=== PATIENT | male | born 1950 | race Caucasian/White ===

== ENCOUNTER 2019-12-10 17:17 | Inpatient (IN) | payer MEDICARE, OTHER ==
[~2019-12-10] VITALS: Ht 180.3 cm; Wt 90.7 kg
[2019-12-10 17:26] VITALS: BP 135/75
[2019-12-10 17:55] LABS: HEMATOCRIT 30.6 % (42.0-52.0); HEMOGLOBIN 10.1 gm/dL (14.0-18.0); MCH 28.1 pg (26.0-34.0); MCV 85.3 fL (80.0-100.0); MPV 7.6 fl. (7.2-11.1); NUCLEATED RBCS 0 /100WBC; PLATELET COUNT* 253 thou/uL (150-400); RBC 3.59 mil/uL (4.50-6.00); RDW-CV 17.9 % (10.5-14.5); WBC 19.2 thou/uL (4.0-11.0)
[2019-12-10 18:04] LABS: CALCIUM 7.8 mg/dL (8.5-10.1); CREATININE 1.2 mg/dL (0.6-1.3); POTASSIUM 3.7 mmol/L (3.5-5.1)
[2019-12-10 18:09] LABS: ALBUMIN 2.8 g/dL (3.4-5.0); TOTAL BILIRUBIN 0.4 mg/dL (<0.1-1.0); TOTAL PROTEIN 7.1 g/dL (6.4-8.2)
[2019-12-10 18:20] LABS: ABSOLUTE LYMPHOCYTES 0.4 thou/uL (0.8-5.3); ABSOLUTE MONOCYTES 1.9 thou/uL (0.0-1.2); ABSOLUTE NEUTROPHILS 16.9 thou/uL (1.6-8.1); PLATELET ESTIMATE ADEQUATE
[2019-12-10 18:25] VITALS: BP 145/75
[2019-12-10 18:27] LABS: ANISOCYTOSIS 1+
[2019-12-10 18:32] LABS: TEARDROPS Occasional
[2019-12-10 18:39] LABS: OVALOCYTES 4+
[2019-12-10 18:59] VITALS: BP 145/70
[2019-12-10 19:12] LABS: CHOLESTEROL 98 mg/dL (<200); HDL CHOLESTEROL 38 mg/dL (>40); LDL CHOLESTEROL 49 mg/dL (<100); TC:HDL 2.6 Ratio (Not establshd); TRIGLYCERIDE 57 mg/dL (<150); VLDL 11 mg/dL (<40)
[2019-12-10 19:14] LABS: SERUM ASSESSMENT CLEAR
[2019-12-10] MEDS ORDERED: EXCEDRIN CAPLE1 EACH (22:27)
[2019-12-11 04:14] LABS: ABSOLUTE EOSINOPHILS 0.1 thou/uL (0.0-0.7); ABSOLUTE LYMPHOCYTES 0.6 thou/uL (0.8-5.3); ABSOLUTE MONOCYTES 1.5 thou/uL (0.0-1.2); BASOPHILS 0.3 %; EOSINOPHILS 0.4 %; HEMATOCRIT 27.8 % (42.0-52.0); LYMPHOCYTES 4.4 %; MCH 28.1 pg (26.0-34.0); MCHC 32.4 g/dL (28.0-37.0); MCV 86.7 fL (80.0-100.0); MONOCYTES 10.5 %; MPV 7.6 fl. (7.2-11.1); NUCLEATED RBCS 0 /100WBC; PLATELET COUNT* 207 thou/uL (150-400); POLYS 84.4 %; RBC 3.21 mil/uL (4.50-6.00); WBC 14.3 thou/uL (4.0-11.0)
[2019-12-11 04:39] LABS: ALBUMIN 2.3 g/dL (3.4-5.0); CALCIUM 7.4 mg/dL (8.5-10.1); MAGNESIUM 1.9 mg/dL (1.8-2.4); POTASSIUM 3.7 mmol/L (3.5-5.1); TOTAL BILIRUBIN 0.4 mg/dL (<0.1-1.0); TOTAL PROTEIN 6.4 g/dL (6.4-8.2)
[2019-12-11 05:42] VITALS: BP 128/79
[2019-12-11 08:00] VITALS: BP 151/72
--- NOTE | 2019-12-11 08:02 | NUR ---
PATIENT HAS SLEPT WELL THROUGHOUT THE NIGHT. VSS ON RA. NO C/O PAIN. IV IN RIGHT FOREARM-SL. VASCULAR CONSULTED THIS AM. PATIENT INSTRUCTED TO USE CALL LIGHT WHEN NEEDING ASSISTANCE. HOURLY ROUNDS MADE. WILL CONTINUE WITH PLAN OF CARE AND NURSING TO MONITOR.
[2019-12-11 16:00] VITALS: BP 145/70
--- NOTE | 2019-12-11 17:36 | NUR ---
PATIENT ALERT AND ORIENTED X 4. VITAL SIGNS STABLE ON ROOM AIR. UP WITH ASSISTANCE TO BATHROOM. IV PATENT AND SALINE LOCKED. ANTIBIOTICS GIVEN PER MAR. DENIES PAIN AND NAUSEA AT THIS TIME. LEFT LOWER EXTREMITY ELEVATED ON PILLOW. FALL PRECAUTIONS IN PLACE AND BED ALARM ON. HOURLY ROUNDS MAINTAINED THROUGHOUT THE SHIFT. CALL LIGHT WITHIN REACH. NURSING WILL CONTINUE TO MONITOR.
[2019-12-11 19:45] VITALS: BP 133/67
[2019-12-12 03:05] LABS: GLYCOHEMOGLOBIN (HGB A1C) 5.1 % (4.8-5.6)
--- NOTE | 2019-12-12 05:40 | NUR ---
PT A&O. VSS ON RA. AFEBRILE. LLE RED AND SWOLLEN, ELEVATED ON PILLOWS. IV ABX GIVEN ORDERED. PRN EXCEDRIN GIVEN FOR HEADACHE. PT USES URINAL TO VOID. CALL LIGHT WITHIN REACH. NO OTHER CONCERNS AT THIS TIME. WILL CONTINUE TO MONITOR.
[2019-12-12 07:10] VITALS: BP 159/76
[2019-12-12 07:33] LABS: ABSOLUTE EOSINOPHILS 0.2 thou/uL (0.0-0.7); ABSOLUTE LYMPHOCYTES 0.6 thou/uL (0.8-5.3); ABSOLUTE MONOCYTES 1.3 thou/uL (0.0-1.2); ABSOLUTE NEUTROPHILS 9.4 thou/uL (1.6-8.1); BASOPHILS 0.2 %; EOSINOPHILS 1.6 %; HEMATOCRIT 25.5 % (42.0-52.0); HEMOGLOBIN 8.4 gm/dL (14.0-18.0); LYMPHOCYTES 5.1 %; MCH 28.1 pg (26.0-34.0); MCHC 33.1 g/dL (28.0-37.0); MCV 84.9 fL (80.0-100.0); MONOCYTES 11.2 %; MPV 7.8 fl. (7.2-11.1); NUCLEATED RBCS 0 /100WBC; PLATELET COUNT* 233 thou/uL (150-400); POLYS 81.9 %; RDW-CV 17.7 % (10.5-14.5); WBC 11.4 thou/uL (4.0-11.0)
[2019-12-12 07:42] LABS: ALBUMIN 2.1 g/dL (3.4-5.0); CALCIUM 7.5 mg/dL (8.5-10.1); CREATININE 0.9 mg/dL (0.6-1.3); POTASSIUM 3.3 mmol/L (3.5-5.1); TOTAL BILIRUBIN 0.4 mg/dL (<0.1-1.0); TOTAL PROTEIN 6.2 g/dL (6.4-8.2)
--- NOTE | 2019-12-12 11:30 | NUR ---
PT.RESTING IN BED. ALERT AND ORIENTED. STATED HE LIVES WITH HIS . BOTH ARE INDEPENDENT. HIS CAN ASSIST HIM NEEDED. HE HAS NO DME. HAS HIS WIFES CANE HERE TO USE IF NEEDED. NO HX OF SNF OR HH. 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 HE IS AWARE OF POC. HE SAID DEPENDING ON HOW HIS LEG LOOKS TOMORROW, THEY MAY LET HIM SWITCH TO ORAL ANTIBIOTICS AND GO HOME.
--- NOTE | 2019-12-12 13:17 | 2DMMODE ---
[place] [address] 2 D/M-MODE ECHOCARDIOGRAM Name: SCOOTERORALLANA Room: [address] IN [facility]#: [id number] Admission: 12/11/19 Attend Phys: Vicente Sun Discharge: Date of : 46 Date of Service: 12/12/19 1317 Report #: [id number] THIS REPORT FOR: cc: FAM - No family physician/PCP FAM - No family physician/PCP Bogdan Hui MD [facility] ~ APPROVED REPORT Study performed: 12/12/2019 09:01:02 EXAM: Comprehensive 2D, Doppler, and color-flow Echocardiogram Patient Location: In-Patient Room #: [facility] Status: routine BSA: 2.11 HR: 79 bpm BP: 159/76 mmHg Rhythm: NSR Other Information Study Quality: Good Indications Hypertension/HDD 2D Dimensions IVSd: 11.32 (7-11mm) LVOT Diam: 22.62 (18-24mm) LVDd: 52.69 mm PWd: 9.56 (7-11mm) Ascending Ao: 36.02 (22-36mm) LVDs: 33.50 (25-40mm) Aortic Root: 38.12 mm Volumes Left Atrial Volume (Systole) LA ESV Index: 34.40 mL/m2 Aortic Valve AoV Peak Bruno.: 1.41 m/s AO Peak Gr.: 7.90 mmHg LVOT Max P.42 mmHg AO Mean Gr.: 4.33 mmHg LVOT Mean P.24 mmHg LVOT Max V: 1.16 m/s AO V2 VTI: 26.52 cm LVOT Mean V: 0.67 m/s OLAF (VTI): 3.54 cm2 LVOT V1 VTI: 23.38 [place] [address] 2 D/M-MODE ECHOCARDIOGRAM Name: LANA RACHEL Room: [address] IN [facility].#: [id number] Admission: 12/11/19 Attend Phys: Vicente Sun Discharge: Date of : 46 Date of Service: 12/12/19 1317 Report #: [id number] Mitral Valve E/A Ratio: 1.02 MV Decel. Time: 234.13 ms MV E Max Bruno.: 0.85 m/s MV PHT: 67.90 ms MVA (PHT): 3.24 cm2 TDI E/Lateral E': 6.54 E/Medial E': 7.73 Medial E' Bruno.: 0.11 m/s Lateral E' Bruno.: 0.13 m/s Pulmonary Valve PV Peak Bruno.: 1.10 m/s PV Peak Gr.: 4.84 mmHg Tricuspid Valve RAP Estimate: 5.00 mmHg TR Peak Gr.: 23.82 mmHg RVSP: 28.00 mmHg PA Pressure: 28.00 mmHg Left Ventricle The left ventricle is normal size. There is normal LV segmental wall motion. There is normal left ventricular wall thickness. Left ventricular systolic function is normal. LVEF is 55-60%. Transmitral Doppler flow pattern suggests impaired LV relaxation. Right Ventricle The right ventricle is normal size. The right ventricular systolic function is normal. Atria The left atrium size is normal. The right atrium size is normal. Aortic Valve The aortic valve is normal in structure. Trace aortic regurgitation. There is no aortic valvular stenosis. Mitral Valve The mitral valve is normal in structure. Trace mitral regurgitation. No evidence of mitral valve stenosis. Tricuspid Valve The tricuspid valve is normal in structure. Mild tricuspid regurgitation. [place] [address] 2 D/M-MODE ECHOCARDIOGRAM Name: LANA RACHEL Room: [address]#: [id number] Admission: 12/11/19 Attend Phys: Vicente Sun Discharge: Date of : 46 Date of Service: 12/12/19 1317 Report #: [id number] Pulmonic Valve The pulmonary valve is normal in structure. There is no pulmonic valvular regurgitation. Great Vessels The aortic root is normal in size. IVC is normal in size and collapses >50% with inspiration. Pericardium There is no pericardial effusion. <Conclusion> The left ventricle is normal size. There is normal left ventricular wall thickness. Left ventricular systolic function is normal. LVEF is 55-60%. Transmitral Doppler flow pattern suggests impaired LV relaxation. There is normal LV segmental wall motion. Trace aortic regurgitation. Trace mitral regurgitation. Mild tricuspid regurgitation. No pulmonary hypertension. IVC is normal in size and collapses >50% with inspiration. <ELECTRONICALLY SIGNED> By: Bogdan Hui MD, FACC 12/12/197 16 16 Bogdan Hui MD, FACC /INF
[2019-12-12 15:30] VITALS: BP 151/77
--- NOTE | 2019-12-12 16:38 | NUR ---
PT REMAINED ALERT AND ORIENTED. PT RESTING IN BED. PT DENIED ANY PAIN OR NAUSEA THIS SHIFT. MEDS GIVEN ORDERED. HOURLY ROUNDING COMPLETED. FALL RISK PRECAUTIONS IN PLACE. WILL CONTINUE TO MONITOR.
[2019-12-12 20:36] VITALS: BP 140/82
--- NOTE | 2019-12-13 05:41 | NUR ---
PT SLEPT ALL SHIFT. REQUESTED EXCEDRIN AT 2315 FOR HEADACHE. USES URINAL AT BEDSIDE, ROOM AIR, ALERT AND ORIENTED. LEFT LEG IS ELEVATED AND OPEN TO AIR. REDNESS, EDEMA, SWELLING, SKIN FLAKY. 2+ EDEMA ON BOTH LOWER EXTREMETIES. NO REPORTS OF NAUSEA, PAIN IN LEG. RECEIVED ALL ABX AND MEDS SCHEDULED. WILL CONTINUE TO FOLLOW PLAN OF CARE.
[2019-12-13 07:00] VITALS: BP 164/80
[2019-12-13] MEDS ORDERED: KEFLEX500 M1 PO (08:59)
[2019-12-13] MEDS ORDERED: ACIDOPHILUS1 EAC3 PO (08:59)
[2019-12-13] MEDS ORDERED: CANE MISCELL (09:00)
[2019-12-13 09:05] VITALS: BP 164/80
[2019-12-13 09:24] VITALS: BP 164/80
[2019-12-13 11:42] VITALS: BP 164/80
--- NOTE | 2019-12-13 11:46 | NUR ---
WOUND NURSE: PATIENT SEEN TO ADDRESS LESIONS RELATED TO CELLULITIS AND VENOUS INSUFFICIENCY ON THE LEFT LOWER EXTREMITY-- TIBIAL ASPECT. PRESENTS WITH REDNSS AND EXCORIATION ALONG THE TIBIAL ASPECT MEASURING 13 X 16 CM. THERE IS NO ACTIVE DRAIANGE OR OPEN DRAINING WOUND AT THIS TIME APPARENT. LEG IS EDEMATOUS, REDDENED, AND WARM TO TOUCH; HOWEVER, TOES ARE COOL, BUT WITH 3 SECOND CAPILLARY REFILL. PATIENT WITH PALPABLE PEDAL PULSES NOTED. DISCUSSED USE OF COMPRESSION WITH KOFI VALERO AND SHE RECOMMENDS 3 LAYER COMPRESSION. CLEANSED WITH SOAP AND WATER, RINSED, THEN PATTED DRY. APPLIED LOTION TO INTACT SKIN TOES TO KNEE. APPLIED XEROFORM GAUZE UNDER ABD TO EXCORIATED AREA, THEN WRAPPED TOES TO KNEE WITH 3 LAYER COMPRESSION WRAP. CAPILLARY REFILL IN TOES WAS 3 SECONDS. LEG GIRTH MEASUREMENTS ARE FOLLOWS: FOREFOOT: 28.5 CM; ANKLE: 29 CM; CALF: 41 CM. PATIENT INSTRUCTED ON POTENTIAL COMPLICATIONS AND WHEN TO SEEK EMERGENCY MEDICAL ATTENTION PERTAINING TO LLE INTERVENTION. PATIENT STATES HE UNDERSTANDS. PATIENT PROVIDED WITH APPT CARD REGARDING APPT AT [facility] 12/17 AT 09:00 AND HE STATES HE UNDERSTANDS.
[2019-12-13 11:53] VITALS: BP 164/80
--- NOTE | 2019-12-13 12:48 | NUR ---
PT GIVEN DISCHARGE INFORMATION, CARE NOTES AND PRESCRIPTIONS CALLED INTO PHARMACY. IV REMOVED. PT BELONGINGS GATHERED. PT LEFT VIA WHEELCHAIR WITH NURSING STAFF TO HOME. FALL RISK PRECAUTIONS IN PLACE. HOURLY ROUNDING COMPLETED.
[2019-12-13 13:49] VITALS: BP 164/80
== END 2019-12-13 13:50 | disposition home or self-care (01) | DRG 872 ==
LOC: M.ERS 17:17 → M.TBA-ER 17:40 → M.ORTHSURG 18:32
PROVIDERS: Emergency Medicine Emergency Medical Services; ADMIT Internal Medicine; ATTEND Internal Medicine
DX: A41.9 Sepsis, unspecified organism (principal); L03.116 Cellulitis of left lower limb; E44.0 Moderate protein-calorie malnutrition; E87.1 Hypo-osmolality and hyponatremia; D64.9 Anemia, unspecified; E87.6 Hypokalemia; I73.9 Peripheral vascular disease, unspecified; N18.2 Chronic kidney disease, stage 2 (mild); Z20.828 Contact with and (suspected) exposure to other viral communicable diseases; Z79.82 Long term (current) use of aspirin; Z68.27 Body mass index [BMI] 27.0-27.9, adult

== ENCOUNTER → 2019-12-18 | Outpatient (CLI) | payer MEDICARE, OTHER ==
[~2019-12-18] MED LIST: ACIDOPHILUS1 EAC3 PO; CANE MISCELL; EXCEDRIN CAPLE1 EACH; KEFLEX500 M1 PO
== END ==
LOC: M.WC 04:08
PROVIDERS: ATTEND Surgery
DX: I83.028 Varicose veins of left lower extremity with ulcer other part of lower leg (principal); L97.821 Non-pressure chronic ulcer of other part of left lower leg limited to breakdown of skin; L03.116 Cellulitis of left lower limb; I89.0 Lymphedema, not elsewhere classified

== ENCOUNTER → 2019-12-25 | Outpatient (CLI) | payer MEDICARE, OTHER | LOC: M.WC 07:05 | PROVIDERS: ATTEND Surgery | DX: I83.028 Varicose veins of left lower extremity with ulcer other part of lower leg (principal); L97.828 Non-pressure chronic ulcer of other part of left lower leg with other specified severity; L03.116 Cellulitis of left lower limb; I89.0 Lymphedema, not elsewhere classified ==